=== PATIENT | female | born 1935 | race Caucasian/White ===

== ENCOUNTER 2017-01-13 13:47 | Emergency (ER) | payer MEDICARE, OTHER ==
[2017-01-13] MEDS ORDERED: Lidocaine 1% PF 5 ML VIAL ONE (15:12)
[2017-01-13] MEDS ORDERED: Lidocaine 1% (PF) 30 ML VIAL ONE (15:15)
[2017-01-13] MEDS ORDERED: Bacitracin Zinc 1 Packet ONE (17:08)
[2017-01-13] MEDS ORDERED: Adacel (T-DAP) 0.5 ML VIAL ONE (17:08)
== END 2017-01-13 17:50 | disposition home or self-care (01) ==
LOC: ERS 13:47
DX: S81.812A Laceration without foreign body, left lower leg, initial encounter (principal); E78.5 Hyperlipidemia, unspecified; I10 Essential (primary) hypertension; Z85.3 Personal history of malignant neoplasm of breast; Z92.3 Personal history of irradiation; G30.9 Alzheimer's disease, unspecified; F02.80 Dementia in other diseases classified elsewhere, unspecified severity, without behavioral disturbance, psychotic disturbance, mood disturbance, and anxiety; F41.9 Anxiety disorder, unspecified; W05.0XXA Fall from non-moving wheelchair, initial encounter; Y92.129 Unspecified place in nursing home as the place of occurrence of the external cause
CPT/HCPCS: 12035; 90471; 90715; J2001